=== PATIENT | female | born 1985 | race Caucasian/White ===

== ENCOUNTER 2019-01-12 06:02 | Emergency (ER) | payer BC ==
[~2019-01-12] VITALS: Ht 167.6 cm; Wt 129.7 kg
[~2019-01-12 06:02] MED LIST: BACTRIM DS TAB1 EACH PO; CEPHALEXIN500 MG PO; CLINDAMYCIN HC150 MG PO; HYDROXYZINE HCL25 MG PO
== END 2019-01-12 06:31 | disposition home or self-care (01) ==
LOC: ER 06:02
DX: S44.91XA Injury of unspecified nerve at shoulder and upper arm level, right arm, initial encounter (principal); S54.91XA Injury of unspecified nerve at forearm level, right arm, initial encounter; Z82.49 Family history of ischemic heart disease and other diseases of the circulatory system; Z88.0 Allergy status to penicillin; Z88.8 Allergy status to other drugs, medicaments and biological substances; M79.7 Fibromyalgia; E28.2 Polycystic ovarian syndrome
CPT/HCPCS: 99282

== ENCOUNTER 2019-07-04 07:35 | Emergency (ER) | payer BC ==
[~2019-07-04] VITALS: Ht 167.6 cm; Wt 129.7 kg
[2019-07-04 07:47] VITALS: BP 123/79
== END 2019-07-04 07:52 | disposition home or self-care (01) ==
LOC: ER 07:35
DX: R07.89 Other chest pain (principal); M79.7 Fibromyalgia; E28.2 Polycystic ovarian syndrome; Z87.891 Personal history of nicotine dependence
CPT/HCPCS: 93005; 99282

== ENCOUNTER 2020-09-21 09:54 | Emergency (ER) | payer BC ==
[~2020-09-21] VITALS: Ht 167.6 cm; Wt 129.7 kg
[2020-09-21] MEDS ORDERED: BACTRIM DS TAB1 EACH PO (10:38)
[2020-09-21] MEDS ORDERED: PHENAZOPYRIDIN200 MG PO (10:40)
== END 2020-09-21 10:51 | disposition home or self-care (01) ==
LOC: FSED 10:03
DX: R30.0 Dysuria (principal); R35.0 Frequency of micturition; N39.0 Urinary tract infection, site not specified; E28.2 Polycystic ovarian syndrome; M79.7 Fibromyalgia; E66.01 Morbid (severe) obesity due to excess calories
CPT/HCPCS: 81003; 81025; 99283

== ENCOUNTER 2021-08-31 19:39 | Emergency (ER) | payer BC ==
[~2021-08-31] VITALS: Ht 167.6 cm; Wt 139.7 kg
[~2021-08-31 19:39] MED LIST changes: +PHENAZOPYRIDIN200 MG PO
[2021-08-31] MEDS ORDERED: ACETAMINOPHEN 325 MG TAB PO ONE (20:00)
[2021-08-31] MEDS ORDERED: KETOROLAC TROMETHAMINE 30 MG/ML VIAL IV ONE (20:00)
[2021-08-31] MEDS ORDERED: ONDANSETRON HCL INJ 2MG/ML 2ML 2 MG/ML VIAL IV ONE (20:00)
[2021-08-31] MEDS ORDERED: FAMOTIDINE 20 MG/2 ML VIAL IV ONE ×2 (20:00→20:44)
[2021-08-31] MEDS ORDERED: SODIUM CHLORIDE 0.9% 1000ML 1,000 ML IV STA (20:00)
[2021-08-31] MEDS ORDERED: KETOROLAC TROMETHAMINE 30 MG/ML VIAL ONE (20:44)
[2021-08-31] MEDS ORDERED: ONDANSETRON HCL INJ 2MG/ML 2ML 2 MG/ML VIAL ONE (20:44)
[2021-08-31] MEDS ORDERED: SODIUM CHLORIDE 0.9% 1000ML 1,000 ML ONE (20:44)
[2021-08-31] MEDS ORDERED: ACETAMINOPHEN 325 MG TAB ONE (20:44)
[2021-08-31] MEDS ORDERED: ACETAMINOPHEN500 MG PO (21:04)
[2021-08-31] MEDS ORDERED: FAMOTIDINE20 MG PO (21:04)
[2021-08-31] MEDS ORDERED: ONDANSETRON ODT4 MG PO (21:04)
== END 2021-08-31 22:08 | disposition home or self-care (01) ==
LOC: FSED 19:46
DX: R50.9 Fever, unspecified (principal); K52.9 Noninfective gastroenteritis and colitis, unspecified; B34.9 Viral infection, unspecified; R11.2 Nausea with vomiting, unspecified; E28.2 Polycystic ovarian syndrome; M79.7 Fibromyalgia; E66.01 Morbid (severe) obesity due to excess calories; Z20.822 Contact with and (suspected) exposure to COVID-19
CPT/HCPCS: 80053; 81003; 85025; 96374; 96375; 99284; J1885; J2405; J7030; U0002

== ENCOUNTER 2021-09-02 06:20 | Emergency (ER) | payer BC, OTHER ==
[~2021-09-02] VITALS: Ht 167.6 cm; Wt 139.7 kg
[~2021-09-02 06:20] MED LIST changes: +ACETAMINOPHEN500 MG PO; +FAMOTIDINE20 MG PO; +ONDANSETRON ODT4 MG PO
== END 2021-09-02 08:14 | disposition home or self-care (01) ==
LOC: ER 06:29
DX: M79.642 Pain in left hand (principal); S60.222A Contusion of left hand, initial encounter; X58.XXXA Exposure to other specified factors, initial encounter; Y92.89 Other specified places as the place of occurrence of the external cause; E28.2 Polycystic ovarian syndrome; M79.7 Fibromyalgia; E66.01 Morbid (severe) obesity due to excess calories
CPT/HCPCS: 99283

== ENCOUNTER 2022-06-20 06:25 | Emergency (ER) | payer SELFPAY ==
[~2022-06-20] VITALS: Ht 167.6 cm; Wt 163.3 kg
[~2022-06-20 06:25] MED LIST changes: +CLEOCIN HCL300 MG PO; +PREDNISONE20 MG PO
[2022-06-20] MEDS ORDERED: SODIUM CHLORIDE 0.9% 1000ML 1,000 ML IV STA (06:39)
[2022-06-20] MEDS ORDERED: ONDANSETRON HCL INJ 2MG/ML 2ML 2 MG/ML VIAL IV PRN (06:45)
[2022-06-20] MEDS ORDERED: FENTANYL CITRATE/PF 100MCG/2 ML INJ IV PRN (06:45)
[2022-06-20 07:02] LABS: BASOPHILS # (AUTO) 0.1 (0.0-0.1); BASOPHILS % 0.8 % (0.0-1.0); EOSINOPHILS # (AUTO) 0.2 (0.0-0.4); EOSINOPHILS % 2.4 % (0.0-6.0); HEMATOCRIT 39.5 % (34.2-44.1); HEMOGLOBIN 12.3 g/dL (12.0-16.0); LYMPHOCYTES # (AUTO) 2.3 (1.0-3.2); LYMPHOCYTES % 34.6 % (18.0-39.1); MEAN CORPUSCULAR HEMOGLOBIN 27.4 pg (28-32); MEAN CORPUSCULAR HGB CONC 31.1 g/dL (31-35); MONOCYTES # (AUTO) 0.4 (0.2-0.8); NEUTROPHILS # (AUTO) 3.7 (2.1-6.9); NEUTROPHILS % 55.9 % (38.7-80.0); PLATELET COUNT 333 x10e3/uL (140-360); RED BLOOD COUNT 4.49 x10e6/uL (3.6-5.1); RED CELL DISTRIBUTION WIDTH 13.2 % (11.7-14.4)
[2022-06-20 07:21] LABS: ALBUMIN 3.6 g/dL (3.5-5.0); ALBUMIN/GLOBULIN RATIO 0.9 (0.8-2.0); ANION GAP 13.4 mmol/L (8-16); CALCIUM 8.7 mg/dL (8.4-10.2); CREATININE, SERUM 0.77 mg/dL (0.57-1.11); POTASSIUM 4.4 mmol/L (3.5-5.1)
[2022-06-20 08:10] LABS: COLOR,URINE YELLOW (YELLOW)
[2022-06-20 08:11] LABS: CLARITY,URINE SL CLOUDY (CLEAR); KETONES,URINE NEGATIVE (NEGATIVE); LEUKOCYTE ESTERASE ,URINE TRACE (NEGATIVE); NITRITE,URINE NEGATIVE (NEGATIVE); PROTEIN,URINE DIPSTICK NEGATIVE (NEGATIVE); URINE UROBILINOGEN 0.2 mg/dL (0.2 - 1)
[2022-06-20] MEDS ORDERED: DICYCLOMINE HCL 20 MG/2 ML VIAL IM ONE (08:30)
[2022-06-20] MEDS ORDERED: DICYCLOMINE HCL20 MG PO (08:34)
[2022-06-20] MEDS ORDERED: ONDANSETRON ODT4 MG PO (08:35)
[2022-06-20 08:36] LABS: BACTERIA,URINE MODERATE /HPF; EPITHELIAL CELLS,URINE MODERATE /LPF; RBC,URINE 0-5 /HPF (0-5)
[2022-06-20] MEDS ORDERED: MACROBID 100 M100 MG PO (08:53)
[2022-06-20 09:21] VITALS: BP 116/70
[2022-06-20] MEDS ORDERED: IOPAMIDOL 370 MG/ML 100 ML INFUS..BTL INJ ONE (10:07)
== END 2022-06-20 09:12 | disposition home or self-care (01) ==
LOC: ER 06:35
DX: R10.31 Right lower quadrant pain (principal); N39.0 Urinary tract infection, site not specified; R11.2 Nausea with vomiting, unspecified; R19.7 Diarrhea, unspecified; M79.7 Fibromyalgia; E28.2 Polycystic ovarian syndrome; E66.01 Morbid (severe) obesity due to excess calories
CPT/HCPCS: 36415; 74177; 80053; 81001; 83690; 84702; 85025; 99284; J0500; J2405; J3010; J7030; Q9967

== ENCOUNTER 2022-07-04 18:01 | Emergency (ER) | payer BC ==
[~2022-07-04] VITALS: Ht 167.6 cm; Wt 141.7 kg
[~2022-07-04 18:01] MED LIST changes: +DICYCLOMINE HCL20 MG PO; +MACROBID 100 M100 MG PO
[2022-07-04] MEDS ORDERED: BROMPHENIR-PSE118 ML PO (18:35)
[2022-07-04] MEDS ORDERED: BENZONATATE200 MG PO (18:36)
== END 2022-07-04 18:45 | disposition home or self-care (01) ==
LOC: FSED 18:23
DX: R05.9 Cough, unspecified (principal); B34.9 Viral infection, unspecified; M79.7 Fibromyalgia; E28.2 Polycystic ovarian syndrome; E66.01 Morbid (severe) obesity due to excess calories
CPT/HCPCS: 99283

== ENCOUNTER 2024-06-09 06:18 | Emergency (ER) | payer BC ==
[~2024-06-09] VITALS: Ht 165.1 cm; Wt 154.2 kg
[~2024-06-09 06:18] MED LIST changes: +AZITHROMYCIN250 MG PO; +BENZONATATE200 MG PO; +BROMPHENIR-PSE118 ML PO
[2024-06-09] MEDS ORDERED: LEVOFLOXACIN500 MG PO (07:06)
[2024-06-09] MEDS ORDERED: NASACORT16.9 ML (07:06)
[2024-06-09] MEDS ORDERED: IBUPROFEN800 MG PO (07:06)
[2024-06-09] MEDS ORDERED: LORATADINE10 MG PO (07:06)
[2024-06-09] MEDS ORDERED: DIPHENHYDRAMINE25 M2 PO (07:06)
[2024-06-09] MEDS ORDERED: PROBIOTIC & AC1 EACH PO (07:09)
[2024-06-09] MEDS: CIPROFLOXACIN 500 MG TAB PO ONE (07:16)
[2024-06-09] MEDS: KETOROLAC TROMETHAMINE 30 MG/ML VIAL IM ONE (07:17)
[2024-06-09] MEDS: ACETAMINOPHEN 325 MG TAB PO ONE (07:17)
[2024-06-09] MEDS ORDERED: FLUCONAZOLE200 MG PO (07:38)
[2024-06-09 07:39] VITALS: PULSE 72; RESP 18; TEMP 98.1; O2SAT 96
== END 2024-06-09 07:39 | disposition home or self-care (01) ==
LOC: FSED 06:21
DX: R51.9 Headache, unspecified (principal); J06.9 Acute upper respiratory infection, unspecified; J32.9 Chronic sinusitis, unspecified; M79.7 Fibromyalgia; E66.9 Obesity, unspecified; Z11.52 Encounter for screening for COVID-19
CPT/HCPCS: 0223U; 83518 ×2; 87400; 96372; 99283; J1885